=== PATIENT | male | born 1975 | race Native Hawaiian/Other Pacific Islander ===

== ENCOUNTER 2017-08-06 12:45 | Emergency (ER) | payer BC ==
[~2017-08-06] VITALS: Ht 182.9 cm; Wt 136.1 kg
[2017-08-06 12:50] VITALS: TEMP 99
[2017-08-06 13:20] LABS: PLATELET COUNT 311 K/uL (142-355)
[2017-08-06 13:27] LABS: POTASSIUM 3.2 mmol/L (3.6-5.2)
[2017-08-06 15:00] VITALS: BP 154/92
== END 2017-08-06 15:18 | disposition home or self-care (01) ==
LOC: ED 12:45
PROVIDERS: Emergency Medicine
DX: R07.89 Other chest pain (principal); R00.0 Tachycardia, unspecified; T43.625A Adverse effect of amphetamines, initial encounter
CPT/HCPCS: 36415; 80053; 80307; 82550; 82553; 84484; 85027; 85379; 93005; 96374; 99284; J2060

== ENCOUNTER 2017-11-21 17:24 | Observation (INO) | payer BC ==
[~2017-11-21] VITALS: Ht 182.9 cm; Wt 143.9 kg
[2017-11-21 18:34] VITALS: BP 164/94; TEMP 98.3; Ht 182.9 cm; Wt 143.9 kg
[2017-11-21 18:39] LABS: PLATELET COUNT 222 K/uL (142-355)
[2017-11-21 19:25] LABS: SODIUM 140 mmol/L (136-145)
[2017-11-21 19:28] LABS: PARTIAL THROMBOPLASTIN TIME 27.2 SECONDS (24.5-33.6)
[2017-11-21 20:23] VITALS: BP 150/91; TEMP 97.7
[2017-11-22 00:26] VITALS: BP 125/84; TEMP 97.9
[2017-11-22 05:09] VITALS: BP 118/68; TEMP 97.6
[2017-11-22 08:00] VITALS: BP 117/86; TEMP 98.3
[2017-11-22 12:00] VITALS: BP 118/70; TEMP 97.8
--- NOTE | 2017-11-22 17:10 | NUR ---
IV D/C'd. NO REDNESS OR EDEMA OBSERVED. DISCHARGE INSTRUCTIONS SIGNED AND GIVEN. Pt. EXIT OUT OF FRONT ENTRANCE.
== END 2017-11-22 17:10 | disposition home or self-care (01) ==
LOC: MED/SURG 17:24
PROVIDERS: ADMIT Family Medicine
DX: R07.9 Chest pain, unspecified (principal); I10 Essential (primary) hypertension; E66.01 Morbid (severe) obesity due to excess calories
CPT/HCPCS: 36415; 36591; 80053; 82550; 84484; 85027; 85610; 85730; 93005; 96372; 99220; G0378; G0379; J1650

== ENCOUNTER 2018-11-28 10:25 | Outpatient (CLI) | payer BC ==
[2018-11-28 10:45] LABS: PLATELET COUNT 232 K/uL (142-355)
[2018-11-28 10:49] LABS: POTASSIUM 4.5 mmol/L (3.6-5.2); SODIUM 142 mmol/L (136-145)
== END 2018-11-28 22:36 | disposition home or self-care (01) ==
LOC: LABW 10:25
PROVIDERS: Nurse Practitioner Family
DX: R07.89 Other chest pain (principal)
CPT/HCPCS: 36415; 80053; 82550; 82553; 84484; 85027

== ENCOUNTER 2019-02-13 17:13 | Outpatient (CLI) | payer BC ==
[2019-02-13 17:43] LABS: PLATELET COUNT 252 K/uL (142-355)
[2019-02-13 18:03] LABS: POTASSIUM 4.1 mmol/L (3.6-5.2); SODIUM 139 mmol/L (136-145)
== END 2019-02-13 20:02 | disposition home or self-care (01) ==
LOC: LABW 17:13
PROVIDERS: Nurse Practitioner Family
DX: R07.9 Chest pain, unspecified (principal)
CPT/HCPCS: 36415; 80053; 82550; 82553; 84484; 85027; 85379

== ENCOUNTER 2019-02-14 12:43 | Outpatient (CLI) | payer BC | END 2019-02-14 19:13 | disposition home or self-care (01) | LOC: RAD 12:43 | DX: R07.9 Chest pain, unspecified (principal) ==

== ENCOUNTER 2019-06-17 20:20 | Emergency (ER) | payer BC ==
[~2019-06-17] VITALS: Ht 182.9 cm; Wt 160.6 kg
[2019-06-17 21:00] LABS: PLATELET COUNT 230 K/uL (142-355)
[2019-06-17 21:09] LABS: POTASSIUM 4.3 mmol/L (3.6-5.2); SODIUM 141 mmol/L (136-145)
[2019-06-17 21:38] LABS: PARTIAL THROMBOPLASTIN TIME 26.3 SECONDS (24.5-33.6)
[2019-06-17 22:25] VITALS: BP 164/98; TEMP 97.7
== END 2019-06-17 22:25 | disposition home or self-care (01) ==
LOC: ED 20:20
PROVIDERS: Student in an Organized Health Care Education/Training Program
DX: R07.89 Other chest pain (principal); R06.02 Shortness of breath; R51 Headache
CPT/HCPCS: 80048; 83735; 83880; 84484; 85027; 85610; 85730; 93005; 99283

== ENCOUNTER 2019-09-10 23:27 | Emergency (ER) | payer BC ==
[~2019-09-10] VITALS: Ht 182.9 cm; Wt 160.6 kg
[2019-09-11 00:16] LABS: PLATELET COUNT 201 K/uL (142-355)
[2019-09-11 00:19] LABS: SODIUM 139 mmol/L (136-145)
[2019-09-11 03:25] VITALS: BP 150/87; TEMP 98.2
== END 2019-09-11 03:25 | disposition home or self-care (01) ==
LOC: ED 23:27
PROVIDERS: Emergency Medicine
DX: R07.89 Other chest pain (principal); K21.9 Gastro-esophageal reflux disease without esophagitis
CPT/HCPCS: 36415; 80053; 82550; 82553; 84484; 85027; 85379; 93005; 99284

== ENCOUNTER 2020-01-07 17:23 | Emergency (ER) | payer BC ==
[~2020-01-07] VITALS: Ht 182.9 cm; Wt 160.6 kg
[2020-01-07 17:38] LABS: PLATELET COUNT 317 K/uL (142-355)
[2020-01-07 17:45] LABS: POTASSIUM 2.9 mmol/L (3.6-5.2)
[2020-01-07] MEDS ORDERED: ADDERALL20 MG PO (18:59)
[2020-01-07 23:38] VITALS: BP 124/81; TEMP 98.2
== END 2020-01-07 23:39 | disposition other institution (70) ==
LOC: ED 17:23
PROVIDERS: Emergency Medicine Emergency Medical Services
DX: F32.89 Other specified depressive episodes (principal); R45.851 Suicidal ideations; F10.129 Alcohol abuse with intoxication, unspecified; Y90.7 Blood alcohol level of 200-239 mg/100 ml
CPT/HCPCS: 80053; 80307; 80320; 80329; 84132; 85027; 85048; 87635; 93005; 96360; 96375; 99285; J2060; J2405; U0003

== ENCOUNTER 2020-05-23 16:21 | Emergency (ER) | payer BC ==
[~2020-05-23] VITALS: Ht 182.9 cm; Wt 147.4 kg
[~2020-05-23 16:21] MED LIST: ADDERALL20 MG PO
[2020-05-23] MEDS ORDERED: LISITAB PO (17:08)
[2020-05-23 17:56] LABS: POTASSIUM 3.7 mmol/L (3.6-5.2)
[2020-05-23 18:18] LABS: PLATELET COUNT 208 K/uL (142-355)
[2020-05-23 19:35] VITALS: BP 144/93; TEMP 98.6
== END 2020-05-23 19:44 | disposition home or self-care (01) ==
LOC: ED 16:21
PROVIDERS: Family Medicine
DX: J06.9 Acute upper respiratory infection, unspecified (principal); R05 Cough; J02.9 Acute pharyngitis, unspecified; Z20.828 Contact with and (suspected) exposure to other viral communicable diseases; F17.290 Nicotine dependence, other tobacco product, uncomplicated
CPT/HCPCS: 80053; 81000; 85027; 85379; 87502; 87635; 87651; 99283; U0003

== ENCOUNTER 2020-06-04 10:08 | Outpatient (CLI) | payer BC ==
[~2020-06-04 10:08] MED LIST changes: +LISITAB PO
== END 2020-06-04 21:17 | disposition home or self-care (01) ==
LOC: RAD 10:08
PROVIDERS: ATTEND Family Medicine
DX: M77.31 Calcaneal spur, right foot (principal)

== ENCOUNTER 2020-07-02 08:23 | Outpatient (CLI) | payer BC | END 2020-07-02 19:47 | disposition home or self-care (01) | LOC: US 08:23 | PROVIDERS: ATTEND Family Medicine | DX: R74.01 Elevation of levels of liver transaminase levels (principal) ==

== ENCOUNTER 2020-08-08 07:05 | Emergency (ER) | payer BC ==
[~2020-08-08] VITALS: Ht 182.9 cm; Wt 154.2 kg
[2020-08-08 07:07] VITALS: TEMP 97.5
[2020-08-08 07:48] LABS: PLATELET COUNT 220 K/uL (142-355)
[2020-08-08 07:53] LABS: POTASSIUM 3.6 mmol/L (3.6-5.2); SODIUM 136 mmol/L (136-145)
[2020-08-08 16:58] VITALS: BP 165/87
== END 2020-08-08 17:01 | disposition other institution (70) ==
LOC: ED 07:05
PROVIDERS: Family Medicine
DX: F32.89 Other specified depressive episodes (principal); R45.851 Suicidal ideations; F10.129 Alcohol abuse with intoxication, unspecified; Y90.0 Blood alcohol level of less than 20 mg/100 ml; Z11.52 Encounter for screening for COVID-19
CPT/HCPCS: 36415; 80053; 80307; 80320; 80329; 81000; 85027; 87635; 93005; 99285; U0003

== ENCOUNTER 2022-09-13 14:39 | Emergency (ER) | payer OTHER ==
[~2022-09-13] VITALS: Ht 182.9 cm; Wt 163.3 kg
[2022-09-13 14:40] VITALS: TEMP 98
[2022-09-13 15:24] LABS: PLATELET COUNT 244 K/uL (142-355)
[2022-09-13 15:51] LABS: POTASSIUM 3.7 mmol/L (3.6-5.2)
[2022-09-13 18:05] VITALS: BP 131/99
== END 2022-09-13 18:05 | disposition home or self-care (01) ==
LOC: ED 14:39
PROVIDERS: Family Medicine
DX: K21.9 Gastro-esophageal reflux disease without esophagitis (principal); R07.9 Chest pain, unspecified; F17.220 Nicotine dependence, chewing tobacco, uncomplicated
CPT/HCPCS: 80053; 82150; 83690; 84484; 85027; 93005; 99283

== ENCOUNTER 2022-11-27 17:12 | Outpatient (CLI) | payer OTHER | END 2022-11-27 19:48 | disposition home or self-care (01) | LOC: RAD 17:12 | PROVIDERS: ATTEND Nurse Practitioner Family | DX: M25.561 Pain in right knee (principal) ==

== ENCOUNTER 2023-05-16 18:06 | Outpatient (CLI) | payer OTHER | END 2023-05-16 19:06 | disposition home or self-care (01) | LOC: RAD 18:06 | PROVIDERS: ATTEND Physician Assistant | DX: M79.671 Pain in right foot (principal) ==